=== PATIENT | male | born 1985 | race Caucasian/White ===

== ENCOUNTER 2021-05-22 23:25 | Emergency (ER) | payer OTHER ==
[2021-05-23] MEDS ORDERED: BACTRIM DS TAB1 EACH PO (03:11)
[2021-05-23] MEDS ORDERED: BACTROBAN OINT22 GM TOP (03:11)
[2021-05-23] MEDS ORDERED: CEPHALEXIN500 MG PO (03:11)
[2021-05-23] MEDS ORDERED: LODINE CAP 300300 MG PO (03:11)
== END 2021-05-23 03:34 | disposition home or self-care (01) ==
LOC: ER1 23:25
DX: L02.415 Cutaneous abscess of right lower limb (principal); L03.115 Cellulitis of right lower limb; K21.9 Gastro-esophageal reflux disease without esophagitis; F17.290 Nicotine dependence, other tobacco product, uncomplicated
CPT/HCPCS: 10060; 87070; 87077; 87205; 99283

== ENCOUNTER 2021-10-26 11:41 | Emergency (ER) | payer OTHER ==
[~2021-10-26 11:41] MED LIST: BACTRIM DS TAB1 EACH PO; BACTROBAN OINT22 GM TOP; CEPHALEXIN500 MG PO; LODINE CAP 300300 MG PO
[2021-10-26 14:04] LABS: HEMOGLOBIN 14.3 gm/dl (14.0-17.5); RED BLOOD COUNT 4.72 M/UL (4.20-5.50); WHITE BLOOD COUNT 6.9 K/UL (4.5-11.0)
[2021-10-26 14:33] LABS: BUN/CREATININE RATIO 22 (0-10)
[2021-10-26] MEDS ORDERED: ZOFRAN 4 MG TAB4 MG PO (16:06)
== END 2021-10-26 16:21 | disposition home or self-care (01) ==
LOC: ER1 11:41
PROVIDERS: Physician Assistant Medical
DX: R11.2 Nausea with vomiting, unspecified (principal); R19.7 Diarrhea, unspecified; K21.9 Gastro-esophageal reflux disease without esophagitis; F17.290 Nicotine dependence, other tobacco product, uncomplicated
CPT/HCPCS: 80053; 81001; 83690; 85025; 96361; 96374; 99284; J2405; J7030

== ENCOUNTER 2021-12-08 14:56 | Emergency (ER) | payer OTHER ==
[~2021-12-08 14:56] MED LIST changes: +ZOFRAN 4 MG TAB4 MG PO
[2021-12-08 16:09] LABS: HEMOGLOBIN 13.7 gm/dl (14.0-17.5); RED BLOOD COUNT 4.48 M/UL (4.20-5.50); WHITE BLOOD COUNT 7.1 K/UL (4.5-11.0)
[2021-12-08 16:33] LABS: BUN/CREATININE RATIO 19 (0-10)
[2021-12-08] MEDS ORDERED: ZITHROMAX250 MG PO (17:59)
== END 2021-12-08 18:20 | disposition home or self-care (01) ==
LOC: ER1 14:56
PROVIDERS: Emergency Medicine
DX: J06.9 Acute upper respiratory infection, unspecified (principal); J45.909 Unspecified asthma, uncomplicated; F17.290 Nicotine dependence, other tobacco product, uncomplicated; Z20.822 Contact with and (suspected) exposure to COVID-19
CPT/HCPCS: 0240U; 71046; 80053; 81001; 85025; 87040; 99284